=== PATIENT | male | born 1985 | race Caucasian/White ===

== ENCOUNTER → 2021-05-02 13:05 | Outpatient (BNVA) | payer BC, SELFPAY | PROVIDERS: Family Provider Family Medicine; PCP Family Medicine; Visit Provider Registered Nurse Neonatal Intensive Care | DX: M79.641 Pain in right hand (principal) | CPT/HCPCS: 73130 ==

== ENCOUNTER 2021-05-05 06:00 | Outpatient (RCR) | payer BC, SELFPAY | END 2021-05-25 23:59 | disposition home or self-care (01) | LOC: SOT 06:00 | PROVIDERS: PCP Family Medicine; Referring Provider Family Medicine; Visit Provider Family Medicine | DX: S66.110D Strain of flexor muscle, fascia and tendon of right index finger at wrist and hand level, subsequent encounter (principal) | CPT/HCPCS: 97022; 97035; 97110; 97140; 97165; L3807 ==

== ENCOUNTER 2021-05-26 06:00 | Outpatient (RCR) | payer BC, SELFPAY | END 2021-06-25 23:59 | disposition home or self-care (01) | LOC: SOT 06:00 | PROVIDERS: PCP Family Medicine; Referring Provider Family Medicine; Visit Provider Family Medicine | DX: S56.11 Strain of flexor muscle, fascia and tendon of other and unspecified finger at forearm level (principal); X58.XXXD Exposure to other specified factors, subsequent encounter | CPT/HCPCS: 97168 ==